=== PATIENT | female | born 1960 | race Caucasian/White ===

== ENCOUNTER → 2016-09-03 | Outpatient (CLI) | payer OTHER ==
[~2016-09-03] MED LIST: CALC-250 PO; CALC-80 PO; DCS100C PO; HYDR1TAB75 PO; IBP800T PO; LECITHIN PO; TAUR1000 PO; TYRO500C PO; [UNRECOGNIZED DRUG - OTHER] PO
--- NOTE | 2016-09-03 19:13 | Diagnostic Imaging Report ---
Digital mammogram bilateral screening This study was compared to the prior exams of 07/25/15, 05/09/14 and 10/22/11. At this time, there are no current complaints. The current study was also evaluated with a Computer Aided Detection (CAD) system. FINDINGS: The fibroglandular tissue in both breasts is heterogeneously dense. This does limit the sensitivity of this exam. Overall, there does not appear to have been any significant change when compared to the prior study. No primary or secondary sign of malignancy is noted. IMPRESSION: There is no radiographic evidence for malignancy. ACR BI-RADS Category 1: Negative. Result letter will be mailed to the patient. Note: At least 10% of breast cancer is not imaged by mammography. Dictated by: Dictated on workstation # [id number]
== END ==
LOC: RAD 14:17
PROVIDERS: ATTEND Obstetrics & Gynecology
DX: Z12.31 Encounter for screening mammogram for malignant neoplasm of breast (principal)

== ENCOUNTER 2017-07-21 18:51 | Emergency (ER) | payer OTHER ==
[~2017-07-21] VITALS: Ht 154.9 cm; Wt 65.8 kg
--- OUTSIDE RECORDS SUMMARY | 2017-07-21 19:03 | XMS REPORT ---
Author Author MIKE WRIGHT [facility] eClinical[employer] Address Unknown Phone Unavailable Care Team Providers Care Director Of Quantitative Research Name Role Phone MIKE WRIGHT CP Unavailable Allergies, Adverse Reactions, Alerts Substance Reaction Event Type Rocephin Info Not Available Drug Allergy Problems Problem Type Condition Code Onset Dates Condition Status Assessment Vitamin D deficiency E55.9 Active Problem Symptomatic menopausal or female climacteric states 627.2 Active Assessment Weight gain R63.5 Active Assessment Vitamin B12 deficiency E53.8 Active Problem Family history of other endocrine and metabolic diseases V18.19 Active Problem Other B-complex deficiencies 266.2 Active Problem Family history of other cardiovascular diseases V17.49 Active Problem Urinary tract infection, site not specified 599.0 Active Problem Other malaise and fatigue 780.79 Active Problem Urinary frequency 788.41 Active Problem Urgency of urination 788.63 Active Medications Medication Code System Code Instructions Start Date End Date Status Dosage Estrogens Conjugated [facility] [address]-11 1.25 MG Orally Once a day 1 tablet Estradiol [facility] [address]-77 2 MG Orally Once a day 2 tablet Procedures Procedure Coding System Code Date Office Visit, Est Pt., Level 3 CPT-4 12032 Jul 25, 2015 Vital Signs Date/Time: Jul 25, 2015 Temperature 98.2 F Weight 170.4 lbs Height 62 in BMI 31.16 Index Blood Pressure Diastolic 70 mmHg Blood Pressure Systolic 110 mmHg Cardiac Monitoring Heart Rate 84 bpm Results No Known Results Summary Purpose eClinicalWorks Submission
--- OUTSIDE RECORDS SUMMARY | 2017-07-21 19:03 | XMS REPORT | Continuity of Care Document ---
Author Author [facility] Address Unknown Phone Unavailable Allergies Active Description Code Type Severity Reaction Onset Reported/Identified Relationship to Patient Clinical Status Yes ceftriaxone sodium [id number] Drug Allergy Unknown N/A 11/03/2010 Yes Rocephin Drug Allergy 10/13/2011 Yes Rocephin Drug Allergy N/A N/A 10/13/2011 Medications Problems Date Dx Coded Attending Type Code Diagnosis Diagnosed By 10/20/2010 MIKE WRIGHT MD 300.00 AN ANXIETY UNSPEC 10/20/2010 MIKE WRIGHT MD 311 MO DEPRESS NOS 10/20/2010 300.00 AN ANXIETY UNSPEC 10/20/2010 311 MO DEPRESS NOS 10/20/2010 300.00 AN ANXIETY UNSPEC 10/20/2010 311 MO DEPRESS NOS 10/20/2010 SALINAS MOON PHD 300.00 AN ANXIETY UNSPEC 10/20/2010 SALINAS MOON PHD 311 MO DEPRESS NOS 10/20/2010 MIKE WRIGHT MD 300.00 AN ANXIETY UNSPEC 10/20/2010 MIKE WRIGHT MD 311 MO DEPRESS NOS 10/13/2011 MIKE WRIGHT MD 266.2 OTHER B-COMPLEX DEFICIENCIES 10/13/2011 MIKE WRIGHT MD V17.49 FAMILY HISTORY OF OTHER CARDIOVASCULAR DISEASES 10/13/2011 MIKE WRIGHT MD V18.19 FAMILY HISTORY OF OTHER ENDOCRINE AND METABOLIC DISEASES 10/13/2011 266.2 OTHER B-COMPLEX DEFICIENCIES 10/13/2011 V17.49 FAMILY HISTORY OF OTHER CARDIOVASCULAR DISEASES 10/13/2011 V18.19 FAMILY HISTORY OF OTHER ENDOCRINE AND METABOLIC DISEASES 10/13/2011 266.2 OTHER B-COMPLEX DEFICIENCIES 10/13/2011 V17.49 FAMILY HISTORY OF OTHER CARDIOVASCULAR DISEASES 10/13/2011 V18.19 FAMILY HISTORY OF OTHER ENDOCRINE AND METABOLIC DISEASES 10/13/2011 SALINAS MOON PHD 266.2 OTHER B-COMPLEX DEFICIENCIES 10/13/2011 SALINAS MOON PHD V17.49 FAMILY HISTORY OF OTHER CARDIOVASCULAR DISEASES 10/13/2011 SALINAS MOON PHD V18.19 FAMILY HISTORY OF OTHER ENDOCRINE AND METABOLIC DISEASES 10/13/2011 MIKE WRIGHT MD 266.2 OTHER B-COMPLEX DEFICIENCIES 10/13/2011 MIKE WRGIHT MD V17.49 FAMILY HISTORY OF OTHER CARDIOVASCULAR DISEASES 10/13/2011 MIKE WRIGHT MD V18.19 FAMILY HISTORY OF OTHER ENDOCRINE AND METABOLIC DISEASES 06/06/2012 MIKE WRIGHT MD 627.2 SYMPTOMATIC MENOPAUSAL OR FEMALE CLIMACTERIC STATES 06/06/2012 MIKE WRIGHT MD 780.79 OTHER MALAISE AND FATIGUE 06/06/2012 627.2 SYMPTOMATIC MENOPAUSAL OR FEMALE CLIMACTERIC STATES 06/06/2012 780.79 OTHER MALAISE AND FATIGUE 06/06/2012 627.2 SYMPTOMATIC MENOPAUSAL OR FEMALE CLIMACTERIC STATES 06/06/2012 780.79 OTHER MALAISE AND FATIGUE 06/06/2012 SALINAS MOON PHD 627.2 SYMPTOMATIC MENOPAUSAL OR FEMALE CLIMACTERIC STATES 06/06/2012 SALINAS MOON PHD 780.79 OTHER MALAISE AND FATIGUE 06/06/2012 MIKE WRIGHT MD 627.2 SYMPTOMATIC MENOPAUSAL OR FEMALE CLIMACTERIC STATES 06/06/2012 MIKE WRIGHT MD 780.79 OTHER MALAISE AND FATIGUE 08/20/2012 599.0 URINARY TRACT INFECTION 08/20/2012 788.41 URINARY FREQUENCY 08/20/2012 788.63 URINARY URGENCY 08/20/2012 599.0 URINARY TRACT INFECTION 08/20/2012 788.41 URINARY FREQUENCY 08/20/2012 788.63 URINARY URGENCY 08/20/2012 SALINAS MOON PHD 599.0 URINARY TRACT INFECTION 08/20/2012 SALINAS MOON PHD 788.41 URINARY FREQUENCY 08/20/2012 SALINAS MOON PHD 788.63 URINARY URGENCY 09/03/2016 KARTHIKEYAN KUMAR MD, Ot Z12.31 ENCNTR SCREEN MAMMOGRAM FOR MALIGNANT NE 09/07/2016 KARTHIKEYAN KUMAR MD, Ot Z12.31 ENCNTR SCREEN MAMMOGRAM FOR MALIGNANT NE Procedures Code [place] [address] ROUTINE VENIPUNCTURE 06/06/2012 23512 CBC 06/06/2012 66580 CMP 06/06/2012 75592 LIPID PANEL 06/06 8174652 GFR CALC (RESULT ONLY) 06/06/2012 90115 FSH 06/07/2012 52558 LH 06/07/2012 38703 TSH 06/07/2012 16152 VITAMIN D 25-HYDROXY (D2,D3, TOTAL) 06/07/2012 24347 UA W/ CULTURE IF INDICATED 08/20/2012 26851 CULTURE URINE 07/2013 52333 PSYTX PT&/FAMILY 45 MINUTES 09/20/2012 41466 PSYTX PT&/FAMILY 45 MINUTES 09/27/2012 Results Encounters ACCT No. Visit Date/Time Discharge Status Pt. Type Provider Facility Loc./Unit Complaint [id number] 09/22/2012 10:05:00 09/22/2012 23: 59:59 CLS Outpatient [place], SALINAS Powell [id number] 09/19/2012 15:01:00 09/19/2012 23: 59:59 CLS Outpatient [id number] 08/20/2012 13:06:00 08/20/2012 23: 59:59 CLS Outpatient [id number] 08/16/2012 10:17:00 08/16/2012 23: 59:59 [place] [id number] 06/06/2012 13:46:00 06/06/2012 23: 59:59 CLS Outpatient MIKE WRIGHT MD [id number] 07/14/2017 16:04:00 2016 23:59:59 CLS Preadmit MARYJO VALDES [facility] RAD Z12.31 SCREENING FOR BREAST CANCER [id number] 09/03/2016 14:17:00 2016 23:59:59 CLS Outpatient KARTHIKEYAN KUMAR MD [facility] RAD SCREENING [id number] 07/25/2015 14:59:00 2014 23:59:59 CLS Outpatient KARTHIKEYAN KUMAR MD [facility] RAD ROUTINE MAMMOGRAM SCREENING [id number] 05/15/2014 14:26:00 2013 23:59:59 CLS Outpatient [id number] 05/09/2014 11:53:00 2013 23:59:59 CLS Outpatient [id number] 07/21/2017 18:54:00 ACT Emergency YANI DOWNEY DO [facility] ER BLOOD SUGAR PROBLEMS
[2017-07-21] MEDS ORDERED: ESTR2TAB PO (19:40)
[2017-07-21 23:55] VITALS: BP 0/0
--- NOTE | 2017-07-22 00:03 | ED General ---
General Chief Complaint: Glucose Problems Stated Complaint: BLOOD SUGAR PROBLEMS Nursing Triage Note: pt reports [facility] is refusing to care for her because she has made complaints against them. reports she is concerned her blood sugar is uncontrolled. she felt giggly today before et after eating a large amount of carbohydrates. requesting labwork. Nursing Sepsis Screen: No Definite Risk Source of Information: Patient, Old Records (ALL PMH IS FROM OLD RECORDS, PT LEFT BEFORE ANY QUESTIONS COULD BE ASKED) History of Present Illness Time Seen by Provider: 23:50 Initial Comments WITHOUT ASKING PT ANY OTHER QUESTIONS, EXCEPT ASKING HER WHAT PROBLEMS SHE WAS HAVING TONIGHT THAT BROUGHT HER TO THE EMERGENCY ROOM, PT STATES "[facility] WON[facility]T GIVE ME MEDICAL CARE" THEN PT STATES "I FEEL TOTALLY FINE" "THERE'S NOTHING WRONG WITH ME" "I'M NOT SICK" "I DRANK WATER AND NOW I'M FINE" "THIS IS NOT A PROBLEM FOR ER" THEN PT PROMPTLY LEFT THE ER. NO FURTHER QUESTIONING OR EVALUATION DONE Allergies and Home Medications Allergies Coded Allergies: Ceftriaxone Sodium (Unverified Allergy, 11/03/10) Home Medications Estradiol 2 Mg Tablet, 2 MG PO DAILY, (Reported) Constitutional: no symptoms reported Past Vyhnjdu-Wnrzhw-Jyuhuw Hx Patient Social History Alcohol Use: Denies Use Recreational Drug Use: No Smoking Status: Never a Smoker Recent Foreign Travel: No Contact w/Someone Who Travel: No Recent Infectious Disease Expo: No Recent Hopitalizations: No Immunizations Up To Date Date of Influenza Vaccine: Apr 24, 2017 Surgeries History of Surgeries: Yes ("sphincterectomy") Surgeries: Hysterectomy Respiratory History of Respiratory Disorde: No Cardiovascular History of Cardiac Disorders: No Neurological History of Neurological Disord: No Reproductive System Hx Reproductive Disorders: No SHIP YARD ELECTRICAL PERSON History: Hysterectomy Gastrointestinal History of Gastrointestinal Di: No Musculoskeletal History of Musculoskeletal Dis: No Endocrine History of Endocrine Disorders: No Psychosocial History of Psychiatric Problem: Yes Blood Transfusions History of Blood Disorders: No Physical Exam Vital Signs Vital Sign - Last 12Hours 07/21/ 19:22 Temp 97.7 Pulse 93 Resp 16 B/P (MAP) 129/81 (97) Capillary Refill : Less Than 3 Seconds General Appearance: Other (PT AWAKE, ALERT, SMILING. DOES NOT APPEAR TO BE IN ANY DISCOMFORT OR DISTRESS. EXAM NOT COMPLETED PT LEFT BEFORE EXAM COULD BE DONE) Progress/Results/Core Measures Suspected Sepsis Recent Fever Within 48 Hours: No Infection Criteria Present: None New/Unexplained Altered Menta: No Sepsis Screen: No Definite Risk Sepsis Diagnosis: SIRS Temperature:97.7 Pulse: 93 Respiratory Rate: 16 Blood Pressure 129 /81 Mean: 97 Results/Orders My Orders Orders - YANI DOWNEY DO Alcohol (07/21/17 23:49) Cbc With Automated Diff (07/21/17 23:49) Comprehensive Metabolic Panel (07/21/17 23:49) Drug Screen Stat (Urine) (07/21/17 23:49) Ua Culture If Indicated (07/21/17 23:49) Vital Signs/I&O Vital Sign - Last 12Hours 07/21/17 19:22 Temp 97.7 Pulse 93 Resp 16 B/P (MAP) 129/81 (97) Capillary Refill : Less Than 3 Seconds Blood Pressure Mean: 97 Departure Impression Impression: Primary Impression: Left before treatment completed Additional Impression: Patient left before evaluation by physician Disposition: 01 HOME, SELF-CARE Condition: Unchanged Departure-Patient Inst. Referrals: NO,LOCAL PHYSICIAN (PCP) Primary Care Physician YANI DOWNEY DO Jul 22, 2017 00:03
== END 2017-07-21 23:55 | disposition left against medical advice (07) ==
LOC: EDUNIT# 18:51 → ER 18:54
DX: R73.09 Other abnormal glucose (principal); Z90.710 Acquired absence of both cervix and uterus
CPT/HCPCS: 99281

== ENCOUNTER 2020-03-08 16:30 | Emergency (ER) | payer SELFPAY ==
[~2020-03-08] VITALS: Ht 157 cm; Wt 63.0 kg
[~2020-03-08 16:30] MED LIST changes: +ESTR2TAB PO
[2020-03-08 16:54] LABS: BASOPHILS % (AUTO) 1 % (0-10); EOSINOPHILS # (AUTO) 0.1 10^3/uL (0.0-0.3); EOSINOPHILS % (AUTO) 1 % (0-10); HEMATOCRIT 42 % (35-52); HEMOGLOBIN 13.9 G/DL (11.5-16.0); LYMPHOCYTES # (AUTO) 1.7 X 10^3 (1.0-4.0); LYMPHOCYTES % (AUTO) 19 % (12-44); MEAN CORPUSCULAR HEMOGLOBIN 32 PG (25-34); MEAN CORPUSCULAR HGB CONC 33 G/DL (32-36); MEAN CORPUSCULAR VOLUME 96 FL (80-99); MEAN PLATELET VOLUME 11.1 FL (7.4-10.4); MONOCYTES # (AUTO) 0.5 X 10^3 (0.0-1.0); MONOCYTES % (AUTO) 5 % (0-12); NEUTROPHILS # (AUTO) 6.5 X 10^3 (1.8-7.8); NEUTROPHILS % (AUTO) 74 % (42-75); PLATELET COUNT 317 10^3/uL (130-400); RED CELL DISTRIBUTION WIDTH 13.1 % (10.0-14.5); WHITE BLOOD COUNT 8.8 10^3/uL (4.3-11.0)
--- NOTE | 2020-03-08 16:59 | ED Back Pain ---
General Chief Complaint: Back Problems Stated Complaint: SCIATIC PAIN 8000 MG OF TYLENOL, AND 12 ASA Nursing Triage Note: did squat thing at 2300 last night, at 0400 this morning started having severe pain in L hip, took 25 325 mg tylenol in about 3-4 hour time period, took 12 325 mg ASA, went to chiropractor, took 12 200 mg ibuprofen, daughter told [facility] about how much medication pt took, was sent to ED for evaluation, does not want to be here, states liver will clear everything out and pt will be fine Nursing Sepsis Screen: No Definite Risk Source of Information: Patient Exam Limitations: No Limitations History of Present Illness Date Seen by Provider: Mar 08, 2020 Time Seen by Provider: 16:56 Initial Comments To ER with reports of left hip pain. This is left hip and buttock region. She relates to her sciatic nerve. Since 4 AM this morning she has taken a total of 8000 mg of acetaminophen (most recent acetaminophen was over 6 hours ago), she has taken 12/325 mg aspirin and 12 of the 200 mg ibuprofen. He initially went to [facility] and when her daughter told them how much she had taken since this morning they referred her here after contacting poison control. She assures me she has no intention of hurting herself, she is only trying to control the pain Location: Lumbar Spine, Paraspinous Muscles Timing/Duration: 12-24 Hours Pain/Injury Location: Back Associated Symptoms: denies symptoms Allergies and Home Medications Allergies Coded Allergies: Ceftriaxone Sodium (Unverified Allergy, 11/03/10) Home Medications Estradiol 2 Mg Tablet, 2 MG PO DAILY, (Reported) Patient Home Medication List Home Medication List Reviewed: Yes Review of Systems Constitutional: see HPI; No chills, No fever EENTM: see HPI Respiratory: no symptoms reported Genitourinary: no symptoms reported Musculoskeletal: see HPI, back pain Skin: no symptoms reported Psychiatric/Neurological: No Symptoms Reported Past Byzhxsv-Uusdlz-Ssuboz Hx Patient Social History Alcohol Use: Denies Use Recreational Drug Use: No 2nd Hand Smoke Exposure: No Recent Foreign Travel: No Contact w/Someone Who Travel: No Recent Infectious Disease Expo: No Recent Hopitalizations: No Immunizations Up To Date Date of Influenza Vaccine: Apr 24, 2017 Past Medical History Surgeries: Yes ("sphincterectomy") Hysterectomy Respiratory: No Cardiac: No Neurological: No Reproductive Disorders: No FIREFIGHTER TYPE ONE History: Hysterectomy Gastrointestinal: No Musculoskeletal: No Endocrine: No Psychosocial: Yes Blood Disorders: No Physical Exam Vital Signs Vital Signs - First Documented 03/08/20 16:41 Temp 37.1 Pulse 83 Resp 18 B/P (MAP) 137/67 (90) Capillary Refill : Less Than 3 Seconds Height, Weight, BMI Height: 5'1.00" Weight: 145lbs. oz. 65.746433pb; 25.00 BMI Method:Stated General Appearance: No Apparent Distress, WD/WN (very talkative alert and oriented smiling no distress) Neck: Full Range of Motion, Normal Inspection Respiratory: Lungs Clear, Normal Breath Sounds, No Accessory Muscle Use, No Res piratory Distress Gastrointestinal: Normal Bowel Sounds, Non Tender, Soft Extremity: Normal Capillary Refill, Normal Inspection Neurologic/Psychiatric: Alert, Oriented x3 Skin: Normal Color, Warm/Dry Progress/Results/Core Measures Results/Orders Lab Results Laboratory Tests Test 03/08/20 16:44 Range/Units White Blood Count 8.8 4.3-11.0 10^3/uL Red Blood Count 4.40 4.35-5.85 10^6/uL Hemoglobin 13.9 11.5-16.0 G/DL Hematocrit 42 35-52 % Mean Corpuscular Volume 96 80-99 FL Mean Corpuscular Hemoglobin 32 25-34 PG Mean Corpuscular Hemoglobin Concent 33 32-36 G/DL Red Cell Distribution Width 13.1 10.0-14.5 % Platelet Count 317 130-400 10^3/uL Mean Platelet Volume 11.1 H 7.4-10.4 FL Neutrophils (%) (Auto) 74 42-75 % Lymphocytes (%) (Auto) 19 12-44 % Monocytes (%) (Auto) 5 0-12 % Eosinophils (%) (Auto) 1 0-10 % Basophils (%) (Auto) 1 0-10 % Neutrophils # (Auto) 6.5 1.8-7.8 X 10^3 Lymphocytes # (Auto) 1.7 1.0-4.0 X 10^3 Monocytes # (Auto) 0.5 0.0-1.0 X 10^3 Eosinophils # (Auto) 0.1 0.0-0.3 10^3/uL Basophils # (Auto) 0.0 0.0-0.1 10^3/uL Sodium Level 138 135-145 MMOL/L Potassium Level 4.7 3.6-5.0 MMOL/L Chloride Level 108 H 98-107 MMOL/L Carbon Dioxide Level 18 L 21-32 MMOL/L Anion Gap 12 5-14 MMOL/L Blood Urea Nitrogen 11 7-18 MG/DL Creatinine 0.81 0.60-1.30 MG/DL Estimat Glomerular Filtration Rate > 60 BUN/Creatinine Ratio 14 Glucose Level 87 70-105 MG/DL Calcium Level 9.0 8.5-10.1 MG/DL Corrected Calcium 8.9 8.5-10.1 MG/DL Total Bilirubin 0.1 0.1-1.0 MG/DL Aspartate Amino Transf (AST/SGOT) 22 5-34 U/L Alanine Aminotransferase (ALT/SGPT) 18 0-55 U/L Alkaline Phosphatase 68 40-136 U/L Total Protein 7.3 6.4-8.2 GM/DL Albumin 4.1 3.2-4.5 GM/DL Salicylates Level 26.5 H 5.0-20.0 MG/DL Acetaminophen Level < 10 L 10-30 UG/ML Serum Alcohol < 10 <10 MG/DL My Orders Orders - MARCEL ANTUNEZ APRN Salicylate (03/08/20 16:48) Acetaminophen (03/08/20 16:48) Alcohol (03/08/20 16:48) Ua Culture If Indicated (03/08/20 16:48) Ed Iv/Invasive Line Start (03/08/20 16:48) Cbc With Automated Diff (03/08/20 16:48) Comprehensive Metabolic Panel (03/08/20 16:48) Orphenadrine Inj (Ed Only) (Norflex Inje (03/08/20 17:00) Protime With Inr (03/08/20 17:01) Vital Signs/I&O 03/08/20 16:41 Temp 37.1 Pulse 83 Resp 18 B/P (MAP) 137/67 (90) Blood Pressure Mean: 90 Departure Communication (Admissions) 1726-Discussed with poison control, the slightly elevated salicylate level is not alarming, she can go home. She is without any symptoms. Impression Primary Impression: Sciatica of left side Disposition: HOME, SELF-CARE Condition: Stable (thank you very much) Departure-Patient Inst. Decision time for Depature: 17:27 Referrals: NO,LOCAL PHYSICIAN (PCP) Primary Care Physician MIKE WRIGHT MD (Family) Primary Care Physician Patient Instructions: Radiculopathy (DC) Add. Discharge Instructions: 1. Return to ER for any concerns 2. Follow-up with your doctor this week for recheck. All discharge instructions reviewed with patient and/or family. Voiced understanding. Scripts Methocarbamol (Robaxin-750) 750 Mg Tablet 750 MG PO Q4H PRN for PAIN-SEVERE (8-10), #20 TAB Prov: MARCEL ANTUNEZ APRN 03/08/20 MARCEL ANTUNEZ APRN Mar 08, 2020 16:59
[2020-03-08] MEDS ORDERED: ORPHENADRINE 60 MG/2 ML (NORFLEX) AMP (ED ONLY) IV ONE (17:00)
[2020-03-08 17:03] LABS: ALBUMIN 4.1 GM/DL (3.2-4.5); CHLORIDE 108 MMOL/L (98-107); POTASSIUM 4.7 MMOL/L (3.6-5.0); SODIUM 138 MMOL/L (135-145)
[2020-03-08 17:06] LABS: GLUCOSE 87 MG/DL (70-105); TOTAL PROTEIN 7.3 GM/DL (6.4-8.2)
[2020-03-08 17:07] LABS: CARBON DIOXIDE 18 MMOL/L (21-32)
[2020-03-08 17:08] LABS: BILIRUBIN,TOTAL 0.1 MG/DL (0.1-1.0)
[2020-03-08 17:10] LABS: ALKALINE PHOSPHATASE 68 U/L (40-136); CREATININE SERUM 0.81 MG/DL (0.60-1.30); GFR ESTIMATED > 60
[2020-03-08 17:11] LABS: ACETAMINOPHEN < 10 UG/ML (10-30); BUN/CREATININE RATIO 14
[2020-03-08 17:12] LABS: SALICYLATE 26.5 MG/DL (5.0-20.0)
[2020-03-08 17:13] LABS: ALANINE AMINOTRANSFERASE 18 U/L (0-55)
[2020-03-08 17:26] VITALS: BP 123/84
[2020-03-08] MEDS ORDERED: METH-313 PO (17:28)
== END 2020-03-08 17:39 | disposition home or self-care (01) ==
LOC: EDUNIT# 16:30 → ER 16:33
DX: M54.42 Lumbago with sciatica, left side (principal); Z88.1 Allergy status to other antibiotic agents
CPT/HCPCS: 80053; 85025; 99284; G0480 ×3; 36415; 80320; 80329

== ENCOUNTER 2023-06-16 13:43 | Outpatient (CLI) | payer OTHER ==
[~2023-06-16 13:43] MED LIST changes: -ESTR2TAB PO; +ESTR2TAB3 PO; +METH-313 PO
== END 2023-06-16 14:03 ==
LOC: SLEEP 13:43
PROVIDERS: ATTEND Nurse Practitioner Family
DX: G47.33 Obstructive sleep apnea (adult) (pediatric) (principal)
CPT/HCPCS: G0399